=== PATIENT | female | born 1995 | race Caucasian/White ===

== ENCOUNTER 2023-03-31 10:36 | Outpatient (CLI) | payer OTHER, SELFPAY ==
[2023-03-31 13:43] LABS: Alanine Aminotransferase 15 U/L (6-35); Albumin Level 4.9 g/dL (3.5-5.1); Alkaline Phosphatase 102 U/L (38-126); Anion Gap 12 mmol/L (8-16); Aspartate Amino Transferase 40 U/L (14-36); Bilirubin,Total 0.7 mg/dL (0.2-1.3); Blood Urea Nitrogen 11 mg/dL (7-17); Calcium 9.6 mg/dL (8.4-10.2); Carbon Dioxide 25 mmol/L (22-30); Chloride 103 mmol/L (98-107); Estimated Glomerular Filt Rate > 60; Glucose 77 mg/dL (65-110); Sodium 140 mmol/L (137-145)
[2023-03-31 14:00] LABS: Free T4 Free Thyroxine 1.43 ng/mL (0.78-2.19); Vitamin D 25 Hydroxy 41.8 ng/mL
[2023-03-31 18:22] LABS: Hemoglobin A1C 4.9 % (<5.7)
[2023-04-03 03:27] LABS: Thyroid Peroxidase Antibodies 914 IU/mL (<9)
== END 2023-03-31 10:37 | disposition home or self-care (01) ==
LOC: ANHWCLAB 10:37
PROVIDERS: PCP Nurse Practitioner Family; Visit Provider Internal Medicine
DX: E03.9 Hypothyroidism, unspecified (principal); E06.3 Autoimmune thyroiditis
CPT/HCPCS: 36415; 80053; 82306; 82607; 83036; 84439; 84443; 86376

== ENCOUNTER → 2023-04-06 15:31 | Outpatient (CLI) | payer OTHER, SELFPAY ==
--- NOTE | ~2023-04-06 | US_ITS ---
EXAMINATION: US thyroid DATE: 04/06/2023 15:48 INDICATION: Goiter TECHNIQUE: Multiple ultrasound images of the thyroid were obtained. COMPARISON: None. FINDINGS: The right thyroid lobe measures 4.3 x 1.3 x 1.1 cm. The left thyroid lobe measures 5.0 x 1.1 x 1.4 c m. The isthmus measures 0.3 cm. There is heterogeneous echogenicity throughout the thyroid gland, whi ch reduces sensitivity for detection of thyroid nodules. No discrete nodules identified. Normal vascu lar flow is present. IMPRESSION: Heterogeneous thyroid gland as can be seen with Day thyroiditis and Graves' disease. Reviewed, dictated and finalized at location [facility] IMPRESSION: Heterogeneous thyroid gland as can be seen with Day thyroiditis and Grave s' disease.
== END ==
PROVIDERS: PCP Internal Medicine; Visit Provider Internal Medicine
DX: E04.9 Nontoxic goiter, unspecified (principal)
CPT/HCPCS: 76536

== ENCOUNTER 2024-04-18 13:34 | Outpatient (CLI) | payer OTHER, SELFPAY ==
[2024-04-18 14:16] LABS: Alanine Aminotransferase 19 U/L (6-35); Albumin Level 4.6 g/dL (3.5-5.1); Alkaline Phosphatase 97 U/L (38-126); Anion Gap 7 mmol/L (4-12); Aspartate Amino Transferase 24 U/L (14-36); Bilirubin,Total 0.4 mg/dL (0.2-1.3); Blood Urea Nitrogen 14 mg/dL (7-17); Calcium 8.7 mg/dL (8.4-10.2); Carbon Dioxide 27 mmol/L (22-30); Chloride 105 mmol/L (98-107); Estimated Glomerular Filt Rate > 60; Glucose 102 mg/dL (65-110); Potassium 3.8 mmol/L (3.4-5.0); Sodium 139 mmol/L (137-145)
[2024-04-18 14:44] LABS: Free T4 Free Thyroxine 0.24 ng/dL (0.78-2.19)
[2024-04-18 21:13] LABS: Hemoglobin A1C 5.1 % (<5.7)
== END 2024-04-18 13:35 | disposition home or self-care (01) ==
LOC: ANHLAB 13:38
PROVIDERS: PCP Internal Medicine; Visit Provider Internal Medicine
DX: E03.9 Hypothyroidism, unspecified (principal); E06.3 Autoimmune thyroiditis
CPT/HCPCS: 36415; 80053; 83036; 84439; 84443